=== PATIENT | male | born 1955 | race Caucasian/White ===

== ENCOUNTER → 2019-11-23 | Outpatient (CLI) | payer OTHER ==
[~2019-11-23] MED LIST: IOPAMIDOL 370 MG/ML 200 ML INFUS..BTL INJ ONE; SODIUM CHLORIDE 0.9% 500ML 500 ML ONE; SODIUM CHLORIDE 0.9% 50ML 50 ML ONE
[2019-11-23 12:29] LABS: CREATININE, SERUM 1.28 mg/dL (0.72-1.25)
--- NOTE | 2019-11-23 14:14 | Diagnostic Imaging Report ---
EXAM: CT Abdomen and Pelvis WITH intravenous contrast INDICATION: Abdominal pain COMPARISON: None. TECHNIQUE: Abdomen and pelvis were scanned utilizing a multidetector helical scanner from the lung base to the pubic symphysis after administration of IV contrast. Coronal and sagittal reformations were obtained. Routine protocol was performed. Scan was performed during portal venous phase. IV CONTRAST: 100mL of Isovue 370 ORAL CONTRAST: None RADIATION DOSE: Total DLP: 301 mGy*cm Dose modulation, iterative reconstruction, and/or weight based adjustment of the mA/kV was utilized to reduce the radiation dose to as low as reasonably achievable. FINDINGS: LOWER THORAX: Normal. HEPATOBILIARY: Mild diffuse hepatic steatosis. No focal liver lesion. No biliary ductal dilation. Unremarkable gallbladder. SPLEEN: No splenomegaly. PANCREAS: No focal masses or ductal dilatation. ADRENALS: No adrenal nodules. KIDNEYS/URETERS: Minimal bilateral hydronephrosis and hydroureter. No renal calculi or solid mass lesion. PELVIC ORGANS/BLADDER: Unremarkable. PERITONEUM / RETROPERITONEUM: No free air or fluid. LYMPH NODES: No lymphadenopathy. VESSELS: Minimal scattered athetotic calcifications of the nonaneurysmal abdominal aorta. GI TRACT: No abnormal bowel thickening. No bowel obstruction. Normal appendix. BONES AND SOFT TISSUES: Unremarkable. IMPRESSION: Mild diffuse hepatic steatosis. Minimal bilateral hydronephrosis and hydroureter without renal calculi or solid mass lesion. Signed by: Renny Centeno MD on 11/23/2019 2:11 PM
== END ==
LOC: CT 11:46
PROVIDERS: ATTEND Internal Medicine Geriatric Medicine
DX: R10.13 Epigastric pain (principal); M54.6 Pain in thoracic spine
CPT/HCPCS: 36415; 74177; 82565; 84520; J7040; Q9967